=== PATIENT | male | born 1965 | race Caucasian/White ===

== ENCOUNTER → 2016-12-29 | Outpatient (CLI) | payer OTHER ==
[~2016-12-29] MED LIST: CIPR-255 PO
[2016-12-29 14:34] LABS: ALT/SGPT 49 U/L (12-78); AST/SGOT 17 U/L (15-37); BLOOD UREA NITROGEN 15 mg/dl (7-18); BUN/CREATININE RATIO 16.3 (10-20); CALCIUM 9.1 mg/dl (8.5-10.1); CARBON DIOXIDE 25 mmol/L (21-32); CHLORIDE 102 mmol/L (98-107); CREATININE 0.92 mg/dl (0.60-1.40); GLUCOSE 346 mg/dl (70-99); POTASSIUM 4.4 mmol/L (3.5-5.1); SODIUM 136 mmol/L (136-145)
[2016-12-29 14:36] LABS: ALB/GLOB RATIO 1.2 (0.9-2); CHOLESTEROL 322 mg/dl (0-200); TRIGLYCERIDES 498 mg/dl (0-150)
[2016-12-29 14:45] LABS: ALKALINE PHOSPHATASE 128 U/L (45-117); BETA-HYDROXYBUTYRATE 2.57 mg/dL (0.2-2.81); CHOLESTEROL/HDL RATIO 8.5; HDL CHOLESTEROL 38 mg/dl
[2016-12-29 14:46] LABS: RATIO 36.4 mcg/mg (0-30.0)
[2016-12-30 06:22] LABS: ESTIMATED AVERAGE GLUCOSE 301 mg/dl; HA1C FLAG Normal (Normal)
--- NOTE | 2017-01-07 09:55 | CODING QUERY MEDICAL NECESSITY ---
SUPPORTING DIAGNOSIS NEEDED Caitlin BARAHONA, A supporting diagnosis is required for the test/procedure performed on this patient in order for us to be reimbursed by the patient's insurance. Please provide a supporting diagnosis for the following test/procedure listed below next to the test name along with your signature. *If there is no additional diagnosis for this patient that would support the following test/procedure please document that below next to the test/procedure. Test(s)/Procedure(s) that require a supporting diagnosis: * 21410 VITAMIN D ASSAY DIAGNOSIS: DATE OF SERVICE: 12/29/16 Provider Signature: Date: Thank you Nathaniel Barker [facility] Information Management Once completed, please kindly fax back to [phone] For questions please call [phone]
== END | disposition home or self-care (01) ==
LOC: C.LAB1850 12:25
PROVIDERS: ATTEND Physician Assistant
DX: E11.9 Type 2 diabetes mellitus without complications (principal); E55.9 Vitamin D deficiency, unspecified